=== PATIENT | female | born 1955 | race Caucasian/White ===

== ENCOUNTER → 2018-04-21 | Outpatient (CLI) | payer OTHER ==
[2018-04-21 18:47] LABS: BASOPHILS ABSOLUTE AUTO 0.03 K/mm3 (0.00-0.23); BASOPHILS PERCENT AUTO 0 % (0-2); EOSINOPHILS ABSOLUTE AUTO 0.01 K/mm3 (0.00-0.68); EOSINOPHILS PERCENT AUTO 0 % (0-6); Hematocrit 43.3 % (33.0-51.0); Hemoglobin 15.2 g/dL (11.5-16.0); IMMATURE GRAN ABSOLUTE AUTO 0.05 K/mm3 (0.00-0.10); IMMATURE GRAN PERCENT AUTO 1 % (0-1); LYMPHOCYTES PERCENT AUTO 21 % (21-46); MONOCYTES ABSOLUTE AUTO 0.47 K/mm3 (0.16-1.47); MONOCYTES PERCENT AUTO 6 % (4-13); Mean Corpuscular HGB 29.6 pg (26.0-34.0); Mean Corpuscular HGB Conc 35.1 g/dL (31.5-36.5); Mean Corpuscular Volume 84 fL (80-100); Mean Platelet Volume 10.4 fL (9.1-12.4); NEUTROPHILS ABSOLUTE AUTO 5.31 K/mm3 (1.96-9.15); NEUTROPHILS PERCENT AUTO 71 % (41-73); Platelet Count 265 K/mm3 (150-400); RDW Coefficient Variation 13.3 % (11.7-14.2); Red Blood Cell Count 5.13 M/mm3 (3.80-5.20); White Blood Cell Count 7.47 K/mm3 (4.00-11.30)
[2018-04-21 19:06] LABS: Albumin, Blood 4.1 g/dL (3.4-5.0); Albumin/Globulin Ratio 1.1 (0.8-1.8); Bilirubin, Total 0.6 mg/dL (0.1-1.0); Bun/Creatinine Ratio 13.5 (12.0-20.0); Calcium, Blood 9.7 mg/dL (8.5-10.1); Creatinine, Blood 0.96 mg/dL (0.40-1.00); Globulin, Blood 3.6 g/dL (2.2-4.0); Potassium, Blood 3.6 mmol/L (3.5-5.5); Thyroid Stimulating Hormone 4.11 uIU/mL (0.360-4.800); Total Protein, Blood 7.7 g/dL (6.4-8.2)
== END ==
LOC: LAB EV 18:40 → LAB SHORT 18:40
PROVIDERS: Physician Assistant Surgical
DX: R20.2 Paresthesia of skin (principal)
CPT/HCPCS: 80053; 84443; 85025

== ENCOUNTER → 2019-05-15 | Outpatient (CLI) | payer OTHER ==
[2019-05-15 18:27] LABS: Source, Urine Clean Catch
[2019-05-15 18:58] LABS: Bilirubin, Urine Neg (Neg); Blood, Urine 1+ (Neg); Glucose Qualitative, Urine Neg (Neg); Ketones, Urine Neg (Neg); Leukocyte Esterase, Urine Neg (Neg); Nitrite, Urine Neg (Neg); Protein, Urine Neg (Neg); Urobilinogen, Urine NORM (Normal)
[2019-05-15 19:07] LABS: Appearance, Urine Clear (Clear); Color, Urine Pale Yellow (P-Yellow)
[2019-05-15 19:08] LABS: Bacteria Not Seen /hpf; Red Blood Cells, Urine 0-2 /hpf (0-2); Squamous Epithelial Cells Not Seen /hpf (Few); White Blood Cells, Urine 0-2 /hpf (0-5)
== END ==
LOC: LAB SHORT 15:30 → LAB 15:30
PROVIDERS: Nurse Practitioner Family
DX: R31.29 Other microscopic hematuria (principal)
CPT/HCPCS: 81001

== ENCOUNTER → 2021-08-21 | Outpatient (CLI) | payer OTHER ==
[2021-08-21 19:06] LABS: Source, Urine Clean Catch
[2021-08-21 19:59] LABS: Bilirubin, Urine Neg (Neg); Blood, Urine 1+ (Neg); Glucose Qualitative, Urine Neg (Neg); Ketones, Urine 1+ (Neg); Leukocyte Esterase, Urine Neg (Neg); Nitrite, Urine Neg (Neg); Protein, Urine Neg (Neg); Specific Gravity, Urine 1.005 (1.003-1.022); Urobilinogen, Urine NORM (Normal); pH, Urine 6.5 (5.0-8.0)
[2021-08-21 20:40] LABS: Appearance, Urine Clear (Clear); Color, Urine Pale Yellow (P-Yellow)
[2021-08-21 20:43] LABS: Bacteria Not Seen /hpf; Red Blood Cells, Urine 0-2 /hpf (0-2); Squamous Epithelial Cells Not Seen /hpf (Few); White Blood Cells, Urine Not Seen /hpf (0-5)
== END ==
LOC: LAB SHORT 19:04 → LAB 19:04
PROVIDERS: Physician Assistant Medical
DX: R39.15 Urgency of urination (principal)
CPT/HCPCS: 81001

== ENCOUNTER 2021-10-18 15:20 | Emergency (ER) | payer OTHER ==
[~2021-10-18] VITALS: Ht 154.9 cm; Wt 69.0 kg
[2021-10-18 15:44] LABS: BASOPHILS ABSOLUTE AUTO 0.03 K/mm3 (0.00-0.23); BASOPHILS PERCENT AUTO 0 % (0-2); EOSINOPHILS ABSOLUTE AUTO 0.02 K/mm3 (0.00-0.68); EOSINOPHILS PERCENT AUTO 0 % (0-6); Hematocrit 46.9 % (33.0-51.0); IMMATURE GRAN ABSOLUTE AUTO 0.02 K/mm3 (0.00-0.10); IMMATURE GRAN PERCENT AUTO 0 % (0-1); LYMPHOCYTES ABSOLUTE AUTO 1.48 K/mm3 (0.84-5.20); LYMPHOCYTES PERCENT AUTO 21 % (21-46); MONOCYTES ABSOLUTE AUTO 0.42 K/mm3 (0.16-1.47); MONOCYTES PERCENT AUTO 6 % (4-13); Mean Corpuscular HGB 29.1 pg (26.0-34.0); Mean Corpuscular HGB Conc 34.1 g/dL (31.5-36.5); Mean Corpuscular Volume 85 fL (80-100); NEUTROPHILS ABSOLUTE AUTO 5.26 K/mm3 (1.96-9.15); NEUTROPHILS PERCENT AUTO 73 % (41-73); Platelet Count 294 K/mm3 (150-400); RDW Coefficient Variation 13.2 % (11.7-14.2); RDW Standard Deviation 40.8 fL (35.1-46.3); White Blood Cell Count 7.23 K/mm3 (4.00-11.30)
[2021-10-18 15:45] LABS: Source, Urine Clean Catch
[2021-10-18 15:51] LABS: Appearance, Urine Hazy (Clear); Bilirubin, Urine Neg (Neg); Blood, Urine 3+ (Neg); Color, Urine Yellow (P-Yellow); Glucose Qualitative, Urine Neg (Neg); Ketones, Urine 3+ (Neg); Leukocyte Esterase, Urine Neg (Neg); Nitrite, Urine Neg (Neg); Protein, Urine Neg (Neg); Urobilinogen, Urine NORM (Normal)
[2021-10-18 16:03] LABS: Bacteria Rare /hpf; Squamous Epithelial Cells Rare /hpf (Few); White Blood Cells, Urine Rare /hpf (0-5)
[2021-10-18 16:30] LABS: Alanine Aminotransfer (ALT/SGP 22 U/L (12-78); Albumin, Blood 4.1 g/dL (3.4-5.0); Albumin/Globulin Ratio 1.2 (0.8-1.8); Alk Phos 77 U/L (50-136); Anion Gap 6 mmol/L (6-16); Aspartate Aminotrans (AST/SGOT 25 U/L (12-37); Bilirubin, Total 0.8 mg/dL (0.1-1.0); Blood Urea Nitrogen 11 mg/dL (8-24); Bun/Creatinine Ratio 17.7 (12.0-20.0); CO2, Blood 22 mmol/L (21-32); Calcium, Blood 9.4 mg/dL (8.5-10.1); Chloride, Blood 108 mmol/L (98-108); Creatinine, Blood 0.62 mg/dL (0.40-1.00); Globulin, Blood 3.5 g/dL (2.2-4.0); Glomerular Filtration Rate >60 (60-); Glucose, Blood 107 mg/dL (70-99); Potassium, Blood 3.7 mmol/L (3.5-5.5); Sodium, Blood 136 mmol/L (136-145); Total Protein, Blood 7.6 g/dL (6.4-8.2)
== END 2021-10-18 16:59 | disposition home or self-care (01) ==
LOC: ER 15:20
PROVIDERS: Physician Assistant
DX: R53.1 Weakness (principal); F41.9 Anxiety disorder, unspecified
CPT/HCPCS: 36415; 80053; 81001; 85025; 93005; 93010; 99285-25

== ENCOUNTER → 2021-12-08 | Outpatient (CLI) | payer OTHER ==
[2021-12-08 16:08] LABS: Source, Urine Clean Catch
[2021-12-08 17:21] LABS: Bilirubin, Urine Neg (Neg); Blood, Urine 3+ (Neg); Glucose Qualitative, Urine Neg (Neg); Ketones, Urine 3+ (Neg); Leukocyte Esterase, Urine Neg (Neg); Nitrite, Urine Neg (Neg); Protein, Urine Neg (Neg); Urobilinogen, Urine NORM (Normal)
[2021-12-08 17:41] LABS: Appearance, Urine Hazy (Clear); Color, Urine Pale Yellow (P-Yellow)
[2021-12-08 17:43] LABS: Bacteria Few /hpf; Squamous Epithelial Cells Rare /hpf (Few); White Blood Cells, Urine 0-2 /hpf (0-5)
== END ==
LOC: LAB 14:30 → LAB SHORT 14:30
PROVIDERS: Physician Assistant Medical
DX: R53.82 Chronic fatigue, unspecified (principal)
CPT/HCPCS: 81001

== ENCOUNTER 2021-12-11 02:17 | Observation (INO) | payer OTHER ==
[~2021-12-11] VITALS: Ht 157.5 cm; Wt 64.9 kg
[2021-12-11 03:06] LABS: Acetaminophen, Random <2.0 ug/mL (10.0-30.0); Alanine Aminotransfer (ALT/SGP 20 U/L (12-78); Albumin/Globulin Ratio 1.2 (0.8-1.8); Alk Phos 62 U/L (50-136); Anion Gap 10 mmol/L (6-16); Aspartate Aminotrans (AST/SGOT 13 U/L (12-37); Bilirubin, Total 0.6 mg/dL (0.1-1.0); Blood Urea Nitrogen 12 mg/dL (8-24); Bun/Creatinine Ratio 18.7 (12.0-20.0); CO2, Blood 24 mmol/L (21-32); Calcium, Blood 8.9 mg/dL (8.5-10.1); Chloride, Blood 106 mmol/L (98-108); Creatinine, Blood 0.64 mg/dL (0.40-1.00); Ethanol (Alcohol), Blood, Med <3 mg/dL; Globulin, Blood 3.4 g/dL (2.2-4.0); Glomerular Filtration Rate >60 (60-); Glucose, Blood 146 mg/dL (70-99); Potassium, Blood 3.4 mmol/L (3.5-5.5); Salicylate <1.7 mg/dL (2.8-20.0); Sodium, Blood 140 mmol/L (136-145); Total Protein, Blood 7.4 g/dL (6.4-8.2)
[2021-12-11 03:45] LABS: BASOPHILS ABSOLUTE AUTO 0.04 K/mm3 (0.00-0.23); BASOPHILS PERCENT AUTO 0 % (0-2); EOSINOPHILS ABSOLUTE AUTO 0.01 K/mm3 (0.00-0.68); EOSINOPHILS PERCENT AUTO 0 % (0-6); Hematocrit 46.5 % (33.0-51.0); Hemoglobin 15.6 g/dL (11.5-16.0); IMMATURE GRAN ABSOLUTE AUTO 0.11 K/mm3 (0.00-0.10); IMMATURE GRAN PERCENT AUTO 1 % (0-1); LYMPHOCYTES ABSOLUTE AUTO 0.71 K/mm3 (0.84-5.20); LYMPHOCYTES PERCENT AUTO 5 % (21-46); MONOCYTES PERCENT AUTO 6 % (4-13); Mean Corpuscular HGB 29.2 pg (26.0-34.0); Mean Corpuscular HGB Conc 33.5 g/dL (31.5-36.5); Mean Corpuscular Volume 87 fL (80-100); Mean Platelet Volume 10.1 fL (9.1-12.4); NEUTROPHILS ABSOLUTE AUTO 13.96 K/mm3 (1.96-9.15); NEUTROPHILS PERCENT AUTO 89 % (41-73); Platelet Count 256 K/mm3 (150-400); RDW Coefficient Variation 13.4 % (11.7-14.2); RDW Standard Deviation 42.7 fL (35.1-46.3); Red Blood Cell Count 5.35 M/mm3 (3.80-5.20); White Blood Cell Count 15.73 K/mm3 (4.00-11.30)
[2021-12-11 06:09] LABS: U Amphetamine Screen Not Detected; U Barbituate Screen Not Detected; U Benzodiazapine Screen Not Detected; U Buprenorphine Screen Not Detected; U Cannabinoids Screen Not Detected; U Cocaine Screen Not Detected; U Methadone Screen Not Detected; U Methamphetamine Screen Not Detected; U Opiates Screen Not Detected; U Oxycodone Screen Not Detected; U Phencyclidine Screen Not Detected; U Propoxyphene Screen Not Detected
[2021-12-11 07:17] LABS: Magnesium, Blood 2.1 mg/dL (1.6-2.4); Potassium, Blood 3.6 mmol/L (3.5-5.5)
[2021-12-11 08:14] LABS: Magnesium, Blood 2.5 mg/dL (1.6-2.4); Potassium, Blood 4.6 mmol/L (3.5-5.5)
[2021-12-11 08:59] LABS: Influenza A, PCR NEGATIVE (NEGATIVE); Influenza B, PCR NEGATIVE (NEGATIVE); Resp Syncytial Virus, PCR NEGATIVE (NEGATIVE); SARS-Cov-2 (COVID-19) PCR, MMC NEGATIVE (NEGATIVE)
== END 2021-12-14 09:26 ==
LOC: ER 02:17 → EOR 02:18
PROVIDERS: Emergency Medicine; ADMIT Student in an Organized Health Care Education/Training Program
DX: F33.9 Major depressive disorder, recurrent, unspecified (principal); T43.592A Poisoning by other antipsychotics and neuroleptics, intentional self-harm, initial encounter; Z20.822 Contact with and (suspected) exposure to COVID-19
CPT/HCPCS: 0241U; 36415; 80053; 83735; 84132; 85025; 86592; 93005; 93010; 96374; A9270; G0378; G0480; J2405

== ENCOUNTER 2022-02-24 10:42 | Observation (INO) | payer MEDICARE, OTHER ==
[~2022-02-24] VITALS: Ht 167.6 cm; Wt 48.7 kg
[2022-02-24 13:53] LABS: Influenza A, PCR NEGATIVE (NEGATIVE); Influenza B, PCR NEGATIVE (NEGATIVE); Resp Syncytial Virus, PCR NEGATIVE (NEGATIVE); SARS-Cov-2 (COVID-19) PCR, MMC NEGATIVE (NEGATIVE)
[2022-02-24 14:39] LABS: BASOPHILS ABSOLUTE AUTO 0.02 K/mm3 (0.00-0.23); BASOPHILS PERCENT AUTO 0 % (0-2); EOSINOPHILS ABSOLUTE AUTO 0.01 K/mm3 (0.00-0.68); EOSINOPHILS PERCENT AUTO 0 % (0-6); Hemoglobin 19.5 g/dL (11.5-16.0); IMMATURE GRAN ABSOLUTE AUTO 0.04 K/mm3 (0.00-0.10); IMMATURE GRAN PERCENT AUTO 0 % (0-1); LYMPHOCYTES ABSOLUTE AUTO 0.64 K/mm3 (0.84-5.20); LYMPHOCYTES PERCENT AUTO 5 % (21-46); MONOCYTES ABSOLUTE AUTO 0.49 K/mm3 (0.16-1.47); MONOCYTES PERCENT AUTO 4 % (4-13); Mean Corpuscular HGB 29.4 pg (26.0-34.0); Mean Corpuscular Volume 86 fL (80-100); Mean Platelet Volume 10.9 fL (9.1-12.4); NEUTROPHILS PERCENT AUTO 91 % (41-73); Platelet Count 260 K/mm3 (150-400); RDW Coefficient Variation 14.2 % (11.7-14.2); RDW Standard Deviation 44.8 fL (35.1-46.3); Red Blood Cell Count 6.64 M/mm3 (3.80-5.20)
[2022-02-24 14:49] LABS: Hematocrit 57.4 % (33.0-51.0)
[2022-02-24 14:56] LABS: Albumin, Blood 3.5 g/dL (3.4-5.0); Bilirubin, Total 1.7 mg/dL (0.1-1.0); Bun/Creatinine Ratio 46.7 (12.0-20.0); Calcium, Blood 10.2 mg/dL (8.5-10.1); Creatinine, Blood 1.07 mg/dL (0.40-1.00); Globulin, Blood 3.6 g/dL (2.2-4.0); Magnesium, Blood 2.8 mg/dL (1.6-2.4); Potassium, Blood 3.5 mmol/L (3.5-5.5); Total Protein, Blood 7.1 g/dL (6.4-8.2)
--- NOTE | 2022-02-25 04:43 | NUR ---
SHIFT SUMMARY A/O TO SELF ONLY, FLAT WITHDRAWN AFFECT. SLOW TO RESPOND WHEN COMMUNICATING. BLADDER SCAN >750, OBTAINED ORDER TO STRAIGHT CATH WITH 1000 ML OUTPUT. DENIES PAIN OR SOB. VSS, NO ACUTE CHANGES AT THIS TIME. BED IN LOWEST POSITION WITH CALL LIGHT IN REACH. WILL CONTINUE TO MONITOR AND REPORT TO ONCOMING RN.
[2022-02-25 05:49] LABS: BASOPHILS ABSOLUTE AUTO 0.02 K/mm3 (0.00-0.23); BASOPHILS PERCENT AUTO 0 % (0-2); EOSINOPHILS ABSOLUTE AUTO 0.09 K/mm3 (0.00-0.68); EOSINOPHILS PERCENT AUTO 1 % (0-6); Hematocrit 44.9 % (33.0-51.0); Hemoglobin 15.1 g/dL (11.5-16.0); IMMATURE GRAN ABSOLUTE AUTO 0.03 K/mm3 (0.00-0.10); IMMATURE GRAN PERCENT AUTO 0 % (0-1); LYMPHOCYTES ABSOLUTE AUTO 0.87 K/mm3 (0.84-5.20); LYMPHOCYTES PERCENT AUTO 9 % (21-46); MONOCYTES ABSOLUTE AUTO 0.54 K/mm3 (0.16-1.47); MONOCYTES PERCENT AUTO 5 % (4-13); Mean Corpuscular HGB 29.5 pg (26.0-34.0); Mean Corpuscular HGB Conc 33.6 g/dL (31.5-36.5); Mean Corpuscular Volume 88 fL (80-100); Mean Platelet Volume 10.7 fL (9.1-12.4); NEUTROPHILS ABSOLUTE AUTO 8.36 K/mm3 (1.96-9.15); NEUTROPHILS PERCENT AUTO 84 % (41-73); Platelet Count 199 K/mm3 (150-400); RDW Coefficient Variation 14.4 % (11.7-14.2); RDW Standard Deviation 46.4 fL (35.1-46.3); Red Blood Cell Count 5.11 M/mm3 (3.80-5.20); White Blood Cell Count 9.91 K/mm3 (4.00-11.30)
[2022-02-25 05:57] LABS: Anion Gap 9 mmol/L (6-16); Blood Urea Nitrogen 36 mg/dL (8-24); Bun/Creatinine Ratio 44.2 (12.0-20.0); CO2, Blood 22 mmol/L (21-32); Calcium, Blood 8.7 mg/dL (8.5-10.1); Chloride, Blood 118 mmol/L (98-108); Creatinine, Blood 0.81 mg/dL (0.40-1.00); Glomerular Filtration Rate >60 (60-); Glucose, Blood 109 mg/dL (70-99); Potassium, Blood 3.2 mmol/L (3.5-5.5); Sodium, Blood 149 mmol/L (136-145)
--- NOTE | 2022-02-25 17:03 | NUR ---
AO TO SELF. WITHDRAWN WITH FLAT AFFECT. PT SLOW TO RESPOND, USUALLY RESPONDS WITH NO OR YES. PT DID NOT URINATE ON DAY SHIFT, RADAR SCIENTIST SCAN @1615 WAS 275ML. PT IS NOT EATING AND REFUSING MEDICATIONS. CURRENTLY NO ACUTE CHANGES. BED AND CHAIR ALARMS IN USE. CALL LIGHT IN REACH.
--- NOTE | 2022-02-25 17:11 | NUR ---
MEDICATION REQ REQUEST FROM [facility]; FAX IN THE CHART.
[2022-02-25] MEDS ORDERED: HYDHCL25 PO (17:15)
[2022-02-26 05:49] LABS: Albumin, Blood 3.3 g/dL (3.4-5.0); Anion Gap 10 mmol/L (6-16); Blood Urea Nitrogen 24 mg/dL (8-24); Bun/Creatinine Ratio 39.5 (12.0-20.0); CO2, Blood 22 mmol/L (21-32); Calcium, Blood 9.4 mg/dL (8.5-10.1); Chloride, Blood 119 mmol/L (98-108); Creatinine, Blood 0.61 mg/dL (0.40-1.00); Glomerular Filtration Rate 99 (60-); Glucose, Blood 96 mg/dL (70-99); Phosphorus, Blood 1.9 mg/dL (2.5-4.9); Potassium, Blood 3.6 mmol/L (3.5-5.5); Sodium, Blood 151 mmol/L (136-145)
--- NOTE | 2022-02-26 08:14 | NUR ---
SHIFT SUMMARY PT ALERT WITH VERY MINIMAL RESPOND, OFTEN REFUSED CARE. PT WOULD STATE "THIS IS TOO MUCH" FOR ANY INTERVENTION. ENC DRINK FLUIDS, ABLE TO GET PT TO SIP WATER BUT REFUSED T/O SHIFT. PT HAS NOT EATEN DURING THE DAY WELL PER DAY SHIFT NURSE. NOTIFY DR. CARSON, NS FLUIDS INFUSED AT 75MLS/HR BUT PT PULLED HER IV. ENC PT USE THE BSC, TO VOID. REFUSED AGIAN. BLADDER SCANNED WITH 600MLS, STRAIGHT CATH DONE WITH 800 URINE OUTPUT. BED ALARM IN PLACED FOR SAFETY. CALL LIGHT WITHIN REACH. REPORT GIVEN TO DAY NURSE.
[2022-02-26] MEDS ORDERED: ESCI10 PO (10:08)
[2022-02-26] MEDS ORDERED: TRAZ50 PO (10:09)
--- NOTE | 2022-02-26 18:21 | NUR ---
SHIFT SUMMARY: PATIENT ALERT AND ORIENTED TO SELF. AN IV WAS PLACED THIS MORNING FOR IV FLUID AND POTASSIUM. RIGHT AFTER THE POTASSIUM WAS FINISHED RUNNING, THE PATIENT PULLED HER IV OUT. WHEN ASKED, SHE COULD NOT TELL US WHY SHE DID IT. SHE REFUSED TO TAKE ANY MEDICATIONS OR EAT ANYTHING. WHEN ANOTHER IV WAS PLACED, SHE IMMEDIATELY PULLED THAT ONE OUT WELL. THROUGHOUT THE DAY, SHE BECAME MORE AND MORE AGITATED. DR. VILLEGAS ORDERED IM ATIVAN. AFTER A DOSE OF THE ATIVAN, THE PATIENT ATE ALL OF HER DINNER AND STARTED HAVING CONVERSATIONS WITH THE STAFF. SHE IS PLEASANTLY CONFUSED. BED AND CHAIR ALARM ON. CALL LIGHT IN REACH. WILL CONTINUE TO MONITOR.
--- NOTE | 2022-02-27 04:39 | NUR ---
JORDAN ATTEMPTS AT STARTING NEW IV, NEW IV WRAPPED WITH ARMBOARD. PT SLEPT ALL NIGHT, ABLE TO TRANSFER INDEPENDENTLY. CONTINUES TO BE CONFUSED.
[2022-02-27 06:02] LABS: Albumin, Blood 2.8 g/dL (3.4-5.0); Anion Gap 7 mmol/L (6-16); Blood Urea Nitrogen 19 mg/dL (8-24); Bun/Creatinine Ratio 30.1 (12.0-20.0); CO2, Blood 27 mmol/L (21-32); Calcium, Blood 8.2 mg/dL (8.5-10.1); Chloride, Blood 110 mmol/L (98-108); Creatinine, Blood 0.63 mg/dL (0.40-1.00); Glomerular Filtration Rate 98 (60-); Glucose, Blood 102 mg/dL (70-99); Phosphorus, Blood 2.5 mg/dL (2.5-4.9); Potassium, Blood 3.1 mmol/L (3.5-5.5); Sodium, Blood 144 mmol/L (136-145)
--- NOTE | 2022-02-27 18:32 | NUR ---
SHIFT SUMMARY PATIENT A&O TO SELF. PATIENT WOULD NOT TALK OR ANSWER ANY QUESTIONS. PATIENT UNCOOPERATIVE WITH CARE NOT WANTING TO GET UP TO RESTROOM OR OUT OF BED. ABLE TO PERSUADE PATIENT TO GET UP TO RESTROOM X2 T/O SHIFT AND GOT UP TO CHAIR. REFUSING MEDS, FOOD AND FLUIDS, ONLY TAKING A FEW SIPS THIS AM. RECEIVING IV FLUIDS. WILL CONTINUE TO MONITOR AND ENCOURAGE ORAL INTAKE.
--- NOTE | 2022-02-28 04:52 | NUR ---
PT UP IN CHAIR, REFUSES TO EAT OR DRINK. PT SHAKES HEAD YES OR NO WHEN ASKED A DIRECT QUESTION. PT TAKEN TO BATHROOM WITH NO SUCCESS. PT REFUSES ALL MEDICATION. PT ASKED ABOUT IV MEDICATION AND CONTINUES TO REFUSE. PT BLADDER SCANED AND SHOWED 650ML. PT WALKED TO BATHROOM AND WAS ABLE TO VOID. PT CONTINUES TO BE INCONTINENT OF STOOL.
[2022-02-28 05:31] LABS: Bun/Creatinine Ratio 23.4 (12.0-20.0); Calcium, Blood 8.2 mg/dL (8.5-10.1); Creatinine, Blood 0.56 mg/dL (0.40-1.00); Potassium, Blood 3.3 mmol/L (3.5-5.5)
--- NOTE | 2022-02-28 19:19 | NUR ---
SHIFT SUMMARY PATIENT A&O TO SELF. PATIENT RARELY RESPONDS TO QUESTIONS. STARES OFF IN THE DISTANCE SITTING IN HER CHAIR MOST OF SHIFT. REFUSING ALL CARE. NOTED PATIENT ATE HER APPLE SLICES ON HER LUNCH. REFUSING TO EAT OR DRINK ANYHTING ELSE. RECEIVING IV FLUIDS. REFUSING TO GET UP TO RESTROOM. PATIENT HAD ONE OCCURENCE OF INCONT. VSS. WILL CONTINUE TO MONITOR.
--- NOTE | 2022-03-01 03:18 | NUR ---
SHIFT SUMMARY PT CONTINUES TO BE NONVERBAL, SHE MAKES EYE CONTACT BUT WILL NOT ANSWER MY QUESTIONS, AND JUST STARES BLANKLY. PT TURNS FACE AWAY WHEN OFFERED APPLESAUCE, AND WILL NOT TAKE SCHDULED MEDICATIONS. NO ACUTE CHANGES IN ASSESSMENT OVERNIGHT. BED IN LOWEST POSITION, CALL LIGHT WITHIN REACH.
[2022-03-01 05:39] LABS: Bun/Creatinine Ratio 19.3 (12.0-20.0); Calcium, Blood 8.1 mg/dL (8.5-10.1); Creatinine, Blood 0.52 mg/dL (0.40-1.00)
--- NOTE | 2022-03-01 19:35 | NUR ---
SHIFT SUMMARY PATIENT A&O TO SELF. PATIENT SAT IN MIDDLE OF BED STARING. WILL OCCASIONALLY MAKE EYE CONTACT BUT WOULD NOT RESPOND. PATIENT REFUSING ALL CARE AND MEDICATION. PATIENT REFUSING TO EAT AND DRINK ALL DAY. RECEIVING IV FLUIDS WITH POTASSIUM. GAVE ATIVAN TOWARDS END OF SHIFT AFTER PATIENT BECAME ANXIOUS AFTER ATTENDS CHANGE. SHORTLY AFTER PATIENT BEGAN SPEAKING TO ONCOMING RN AND BEGAN EATING HER DINNER. REPORT GIVEN TO ONCOMING RN.
--- NOTE | 2022-03-02 05:19 | NUR ---
PT IS SELECTIVELY NON VERBAL WITH STAFF. WHEN PT TALKS ALERT TO SELF, CONFUSED, PARANOID, AND TRIES TO REFUSE ALL CARE. PT REFUSED ALL BEDTIME MEDICATIONS. PT VERY UNSTEADY ON FEET, BACK PEDALS AND LOSES BALANCE. TRIES TO GET OUT OF BED FREQUENTLY. PT ALSO PULLED IV LAST NIGHT.
[2022-03-02 05:53] LABS: Bun/Creatinine Ratio 12.8 (12.0-20.0); Calcium, Blood 7.6 mg/dL (8.5-10.1); Creatinine, Blood 0.47 mg/dL (0.40-1.00); Potassium, Blood 2.6 mmol/L (3.5-5.5)
--- NOTE | 2022-03-02 07:30 | NUR ---
ASSUMED CARE: PT RESETING QUIETLY, NO ACUTE NEEDS AT THIS TIME.
--- NOTE | 2022-03-02 07:57 | NUR ---
RN ENTERED ROOM TO START IV POTASSIUM PER ORDERS AND FOUND IV AND COBAN FOLDED ON TABLE. WHEN ASKED PT ABOUT IT PT STATED SHE DOES NOT NEED IT AND IT IS TEARING HER VEINS UP. TOLD PT THAT SHE NEEDS THE IV FOR MEDICINE AND FLUIDS SINCE SHE HASN'T BEEN EATING. PT STATES SHE HAS BEEN EATING AND "IT'LL BE FINE," THAT HER VEINS JUST NEED TO REST. TOLD HER A NEW IV NEEDED TO BE PLACED AND PT SAID "NO, IT'LL BE FINE." WILL REPORT TO DR. ORLANDO ALARM IN PLACE.
--- NOTE | 2022-03-02 08:15 | NUR ---
CALL TO DR NAYAK TO MAKE HIM AWARE OF PT PULLING IV AND REFUSING NEW ONE. ORDER FOR PO POTASSIUM IF ABLE TO GET PT TO TAKE IT. WILL ATTEMPT WITH BREAKFAST
--- NOTE | 2022-03-02 12:37 | NUR ---
PT GOT UP TO USE RESTROOM AND CONTINUES TO TELL STAFF "I'M FINE" WHENEVER WE TRY TO HELP HER. SHE THEN INSISTED ON SITTING ON EDGE OF BED. COMPLAINS THAT SHE WANTS TO TAKE A WALK. STAFF TOLD HER THAT'S FINE BUT WE HAVE TO WALK WITH HER. SHE TOLD US WE DIDN'T HAVE TO, THAT'S SHE FINE ON HER OWN. EXPLAINED TO HER THAT SHE'S A FALL RISK. OFFERED THE OPTION OF GETTING UP INTO A CHAIR OR BACK TO BED. PT REFUSED TO MAKE A DECISION. METAL CUT OFF SAW OPERATOR CAME INTO ROOM AND GOT HER BACK TO BED. BED ALARM ON AT THIS TIME.
--- NOTE | 2022-03-02 17:26 | NUR ---
PT TRANSFERRED TO ROOM 351. REPORT GIVEN TO MANA AREVALO. PT AMBULATED WITH WALKER TO NEW ROOM BUT ARGUED WITH STAFF WHEN THEY ATTEMPTED TO REDIRECT PT AND INSTRUCT HER TO USE WALKER OR GAIT BELT. WHEN SHE GOT TO NEW ROOM SHE DID NOT WANT TO GO IN AND REQUIRED REDIRECTING AGAIN.
--- NOTE | 2022-03-02 19:15 | NUR ---
REPORT FROM DAY SHIFT RN, PT PULLED OUT HER IV - AND WAS MADE AWARE OF THIS, PT'S POTASSIUM IS 2.6. REPORT FROM RN, IS PT HAS BEEN REFUSING ALL MEDICATIONS, PO FLUIDS/FOOD.
--- NOTE | 2022-03-02 19:45 | NUR ---
PT SITTING IN CHAIR IN THE [place]. GAIT BELT IN PLACE. OFFERRED PT FOOD/FLUIDS - SHE SHAKES HER HEAD NO TO BEING HUNGRY OR WANTING FOOD/FLUIDS. PT WAS ABLE TO FOLLOW INSTRUCTIONS WITH DEEP BREATHS - LS ARE CLEAR THROUGHOUT. PT IS CURRENTLY NON-VERBAL, WITH ARMS CROSSED SITTING IN THE CHAIR. PT DIDN'T ANSWER IF SHE WAS IN PAIN, PT DOESN'T APPEAR TO BE IN ANY DISTRESS, RESTING AT TIMES IN CHAIR WITH EYES CLOSED. CM NOTE REPORTS POTENTIAL FOR ETHICS CONSULT TOMORROW. CM INVOLVED ON CASE - SEE NOTES. LAST PO INTAKE WAS REPORTED IN CHART ON 02/28, LAST IV INTAKE WAS REPORTED ON 03/01. WILL CONTINUE TO MONITOR THROUGHOUT THE NIGHT AND UNTIL AM SHIFT CHANGE.
--- NOTE | 2022-03-02 21:11 | NUR ---
PT AMBULATORY TO HER ROOM, FOR AN ATTENDS CHANGE. PT REQUIRED PROMPTING, SHE STATED SHE WAS "FINE, ALREADY CHANGED." PT DID ALLOW AN ATTENDS CHANGE. PT REFUSED HER MEDICATIONS, SAYS "NO." PT REFUSING PO FLUIDS/FOOD - SAYS "NO."
--- NOTE | 2022-03-02 21:27 | NUR ---
PT PULLED HER GAIT BELT OFF, REFUSED TO HAVE IT PLACED BACK ON. PT IS GETTING HERSELF IN BED, PT TELLS ME "BYE BYE" AND IS TELLING ME WITH HER HANDS TO LEAVE HER ROOM. WATCHING PT FROM THE HALLWAY, FOR SAFETY REASONS. BED ALARM PLACED ON FOR SAFETY.
--- NOTE | 2022-03-02 21:53 | NUR ---
I SPOKE TO DR. TONY - UPDATED DR. TONY THAT PT'S K+ 2.6, PER REPORT FROM DAY SHIFT, PT PULLED OUT HER IV TODAY. ALSO RELAYED PT HASN'T HAD ANY PO INTAKE SINCE 02/28, CM INVOLVED WITH ASSISTING WITH GUARDIANSHIP, AND POTENTIAL FOR ETHICS CONSULT TOMORROW, AND RELAYED PT HASN'T BEEN COMPLIANT WITH MEDICATIONS ALSO RELAYED TO DR. TONY, PREVIOUS RN REPORTED SHE HAD NOTIFIED DAY SHIFT THAT PT HAD PULLED OUT IV TODAY (HOWEVER NOTHING DOCUMENTED ON THIS.) SPOKE TO SEFERINO WILBURN - AND UPDATED HER ON THE ABOVE INFORMATION, ALSO THAT PT HAS BEEN NON-COMPLIANT WITH MEDICATIONS FOR 3 MONTHS, WAS FOUND DOWN AT HOME COVERED IN FECES AND URINE WITH A TEMPERATURE IN THE HOME AT [address] CHIANG NOTE ON CHART, ABOUT GUARDIANSHIP IS NEEDED. PT CONTINUES TO REFUSE PO FLUIDS/FOOD - OFFERRED X3 TONIGHT - PT SHAKES HER HEAD NO EACH TIME TO THE OFFER. PT IS CURRENTLY IN BED, BED ALARM ON.
--- NOTE | 2022-03-02 22:07 | NUR ---
REVIEWED 5/16 AM NOTES FROM MANA GAUTHIER - PT PULLED HER IV OUT AT APPX 0757 TODAY - NOTE IN CHART SHE SPOKE TO THE TODAY REGARDING IV PULLED OUT BY PT.
--- NOTE | 2022-03-02 22:21 | NUR ---
PLACED ORANGE JUICE ON PT'S OVERBED TABLE. EARLIER, I PLACED PT'S WATER CLOSE TO HER ON HER OVERBED TABLE, AND SHE PICKED IT UP AND PLACED IT BACK WHERE IT WAS ON THE OVERBED TABLE, WHICH WAS FURTHER AWAY FROM HER. PT IS CURRENTLY SLEEPING IN BED, RESPIRATIONS EVEN AND UNLABORED. BED ALARM ON FOR PT'S SAFETY.
--- NOTE | 2022-03-03 03:34 | NUR ---
ON 03/01 AT 1935 - NN REPORTS PT BEGAN EATING HER DINNER, HOWEVER I&O'S WEREN'T CHARTED - WILL REPORT THIS OFF TO ONCOMING SHIFT.
--- NOTE | 2022-03-03 03:55 | NUR ---
PT CONTINUES TO REFUSE PO FLUIDS OR FOOD OFFERRED. PT HAS BEEN SLEEPING FOR THE LAST SEVERAL HOURS - BED ALARM ON FOR SAFETY. CALL LIGHT WITHIN REACH. BED IN LOW POSITION. FLUIDS AT BEDSIDE.
--- NOTE | 2022-03-03 04:36 | NUR ---
SHIFT SUMMARY - NO ACUTE CHANGES THIS SHIFT. PT CONTINUES TO REFUSE PO FLUIDS/FOOD, & EVENING MEDICATIONS. PT DID ALLOW 2 ATTENDS CHANGES DURING THE NIGHT. PT HAS BEEN SLEEPING FOR APPX 6 HOURS TONIGHT, RESPIRATIONS EVEN AND UNLABORED. PT WAS SITTING IN A CHAIR IN THE [place] AT THE BEGINNING OF THE SHIFT, MOSTLY STARING OFF INTO SPACE. PT WAS ABLE TO FOLLOW INSTRUCTIONS WITH TAKING DEEP BREATHS FOR LISTENING TO LUNG SOUNDS, AND DID OCCASIONALLY RESPOND TO YES/NO QUESTIONS BY SHAKING HER HEAD, BUT OTHERWISE WAS NOT RESPONDING TO VERBAL QUESTIONS ASKED. PT WAS ABLE TO AMBULATE TO HER ROOM FOR HER FIRST ATTENDS CHANGE WITH A SBA. PT WAS ABLE TO RESPOND WITH LIMITED VERBAL COMMUNICATION - SEE PREVIOUS NOTES. SEE PREVIOUS NOTES TONIGHT ON PT'S PO INTAKE, AND CONVERSATION WITH DR. TONY. WILL CONTINUE TO MONITOR UNTIL AM SHIFT CHANGE.
--- NOTE | 2022-03-03 05:01 | NUR ---
PT IS SITTING UP IN BED, AND REMOVED HER GOWN FROM HER ARMS. PT OFFERRED ORANGE JUICE - PT STATES "NO, I DON'T WANT THAT" AND PUSHED HER OVERBED TRAY AWAY. PT DID ALLOW LAB TO DRAW HER BLOOD THIS AM. BED ALARM IS ON FOR SAFETY. CALL LIGHT WITHIN REACH.
--- NOTE | 2022-03-03 06:02 | NUR ---
PT LAYING IN BED, IN HIGH SEMI FOWLERS POSITION, SLEEPING - RESPIRATIONS EVEN AND UNLABORED.
[2022-03-03 06:12] LABS: Albumin, Blood 2.6 g/dL (3.4-5.0); Bilirubin, Total 1.1 mg/dL (0.1-1.0); Bun/Creatinine Ratio 10.8 (12.0-20.0); Calcium, Blood 8.3 mg/dL (8.5-10.1); Creatinine, Blood 0.55 mg/dL (0.40-1.00); Globulin, Blood 2.7 g/dL (2.2-4.0); Magnesium, Blood 1.8 mg/dL (1.6-2.4); Potassium, Blood 2.5 mmol/L (3.5-5.5); Total Protein, Blood 5.3 g/dL (6.4-8.2)
--- NOTE | 2022-03-03 14:44 | NUR ---
ALERT, ORIENTATION UNKNOWN. PATIENT CAN AMBULATE, REQUIRES SBA WITH ONE PERSON D/T UNSTADY SHAWN; GAIT BELT ON. PATIENT CONTINUES TO REFUSE PO FLUIDS, FOOD, AND MEDICATIONS. PATIENT IS SELECTIVELY VERBAL, MOSTLY SAYS, "NO". SITS CALMLY IN THE HALLWAY CHAIR AND STARES OFF IN THE DISTANCE, RARELY MAKES EYE CONTACT. PATIENT HAD AN INCONTINENT EPISODE WHILE STANDING IN THE HALLWAY. STAFF WAS ABLE TO ASSIST HER TO THE SHOWER TO BE CLEANED, CLOTHING AND ATTENDS CHANGED. PATIENT WAS VERY RESISTIVE TO CARE, HOWEVER NOT COMBATIVE. NO SIGNS OF PAIN, ANXIETY, OR AGGRESSION. CURRENTLY NO ADVERSE BEHAVIORS AND NO ACUE CHANGES. BED ALARM USED WHEN IN BED; BED IN LOWEST POSITION. CALL LIGHT IN REACH, PATIENT DOESN'T USE IT.
--- NOTE | 2022-03-04 15:26 | NUR ---
PATIENT ALERT, ORIENTATION UNKNOWN. PT CAN AMBULATE, GAIT MORE STEADY TODAY; GAIT BELT ON. PT USUALLY SITS IN HALLWAY CHAIR, CURRENTLY RESTING IN HER BED. THIS MORNING PT MADE EYE CONTACT, TALKED A LITTLE, AND ASKED QUESTIONS; PT IS CONFUSED. PT ATE A FEW APPLE SLICES TODAY, BUT STILL NOT DRINKING FLUIDS. PT IS STILL RESISTIVE TO CARE, BUT NOT COMBATIVE. NO SIGNS OF PAIN, ANXIETY, OR AGGRESSION. CURRENTLY NO ADVERSE BEHAVIORS AND NO ACUTE CHANGES. CALL LIGHT IN REACH, PATIENT DOESN'T USE IT.
--- NOTE | 2022-03-04 18:59 | NUR ---
Review of pt with [facility] ethecisit and career specialist. pt walking in room non verbal at my visit. Thei is my first encounter with pt. Suggest Neuro checks and puplil checks. Will ask staff mariettay knows her to monitor for changes in gain or muscle tightening. Suggest speech assess cranial nerve function and swallow. pt may have MS flare or aging and and may be progressing towards dementia. If her swallowing and cognition is declining she may be better served by hospice for the medications they can offer for suffering and neuro symptoms. will follow up with staff. Updated clincial coordinatior.
--- NOTE | 2022-03-05 03:50 | NUR ---
SHIFT SUMMARY NO ACUTE CHANGES TO PT CONDITION. PT SAT IN HALLWAY THIS EVENING AND PUT HERSELF TO BED. SLEPT MOST OF THE NIGHT. DAY SHIFT STS PT WAS COMMUNICATING WITH HER MORE YESTERDAY. PT DID NOT COMMUNICATE WITH ME TONIGHT. WILL CONTINUE TO MONITOR.
--- NOTE | 2022-03-05 15:56 | NUR ---
PATIENT ALERT, ORIENTATION UNKNOWN. PT CAN AMBULATE. PT CONTINUES TO REFUSE PO FLUIDS, FOOD, AND MEDICATIONS. PT SITTING IN HER ROOM FOR MOST OF THE SHIFT. PT PUSHED HER WATER OFF THE BEDSIDE TABLE THIS MORNING, WHEN STAFF INSISTED SHE KEEP IT IN HER ROOM; KEPT REMOVING IT AND RETURNING TO HER ROOM. PT ATE ABOUT 3 APPLE SLICES TODAY, NOTHING ELSE; NOT DRINKING ANY FLUIDS. STILL RESISTING CARE. NO ACUTE CHANGES. CALL LIGHT IN REACH, PT DOESN'T USE IT.
--- NOTE | 2022-03-05 18:59 | NUR ---
pt less interactive ambulating in room.
--- NOTE | 2022-03-06 00:20 | NUR ---
CHAVO BATES CONTACTED FOR CLARIFICATION - PATIENT IS DISORIENTED/CONFUSED, NONVERBAL OCCASIONALLY SPEAKING/RESPONDING. PATIENT IS FULL CODE WITH NO COMFORT CARE ORDERS IN PLACE. PATIENT HAS CONTINUED TO REFUSE ALL FOOD AND WATER, ALL MEDICATIONS AND ANY CARE OR INTERVENTIONS FROM NURSING STAFF. RECENT LABS SHOW LOW POTASSIUM AND DYHYDRATION, NO IV IS IN PLACE AND NO IV FLUIDS BEING ADMINISTERED. DUE TO PATIENTS MENTAL STATE AND INABILITY TO MAKE INFORMED DECISIONS SHOULD WE BE PROVIDING MEDICAL CARE TO GIVE MEDICATIONS OR IV FLUIDS? CHAVO BATES REVIEWED PATIENTS CHART- AGREED APPROPRIATE TO ADMINISTER IV FLUIDS ALTHOUGH PATIENT IS DECLINING DUE TO RECORDED DIAGNOSIS OF DEMENTIA AND ALTERED MENTAL STATUS. THIS NURSE INFORMED MD THAT PATIENT CONTINUES TO DECLINE ANY MEDICAL STAFF INTERVENTIONS, MD PLACED ORDER FOR NON VIOLENT RESTRAINT IN ORDER TO PLACE IV AND ADMINISTER IV FLUIDS.
--- NOTE | 2022-03-06 04:38 | NUR ---
SHIFT SUMMARY/NURSE NOTE: (PLEASE REVIEW NURSING NOTE FOR ADDITIONAL INFORMATION) CHAVO BATES [facility] AND POTASSIUM REPLACEMENT. INFORMED THAT PATIENT CONTINUES TO DECLINE ALL MEDICAL STAFF ASSISTANCE/INTERVENTIONS, CONTINUING TO DECLINE ALL FOOD, WATER AND MEDICATIONS. BASED ON PATIENTS CONTINUED CONDITION OF ALTERED MENTAL STATUS, CONFUSION, DIAGNOSIS OF DEMENTIA AND CONTINUED DECLINATION OF FOOD, WATER AND MEDICATIONS; CHAVO BATES APPROVED APPROPRIATE TO OBTAIN IV ACCESS AND ADMINISTER IV FLUIDS, PLAN TO RECHECK AM LABS. DUE TO CONTINUED REFUSAL OF MEDICAL STAFF INTERVENTIONS ORDERED NON VIOLENT RESTRAINTS. -NON VIOLENT RESTRAINTS APPLIED 0111 AT THIS TIME PATIENT WAS VERY WITHDRAWN AND CONFUSED, DECLINING MEDICAL CARE AND CONTINUED TO BE NON VERBAL WITH OCCASIONALLY VERBALIZING "NO" AND "I DON'T WANT THAT". PATIENT WAS UNABLE TO ANSWER ANY ORIENTATION QUESTIONS AT THIS TIME. PATIENT APPEARED VERY RESTLESS PULLING AT RESTRAINTS AND ATTEMPTING TO REMOVE IV LINES. -IV ATIVAN ADMINISTERED AFTER IV ACCESS OBTAINED WHILE WRIST RESTRAINTS REMAINED IN PLACE. PATIENT HAD POSITIVE RESULTS POST ATIVAN ADMINISTRATION. PATIENT ABLE TO REST, NO LONGER PULLING AT RESTRAINTS. PATIENT PERSONALLY USED CALL RIGGINS AND CALLED NURSING STAFF APPROPRIATELY REQUESTING FOOD AND WATER. PATIENT WAS ABLE TO CONVERSE IN COMPLETE SENTENCES, PT AT THIS TIME AWARE SHE IS IN THE HOSPITAL. PATIENT STATES "IM SORRY I WASNT ALLOWING YOU TO HELP ME EARLIER, I WAS VERY SCARED AND DIDNT KNOW WHAT WAS GOING ON". PATIENT ABLE TO VERBALIZE UNDERSTANDING OF IV FLUID ADMINISTRATION AND AGREED TO TAKE IV FLUIDS AND NOT REMOVE IV ACCESS. 0315- WRIST RESTRAINTS REMOVED - PATIENT CONSUMED A TOTAL OF 800ML OF WATER, 1 BOTTLE OF ENSURE, 2 JELLO CUPS, 1 YOGURT, 1 PUDDING AND 2 PACKAGES OF CHEESE. PATIENT ABLE TO FEED SELF. NO ATTEMPTS TO GET OUT OF BED WITHOUT ASSISTANCE, NO ATTEMPTS TO REMOVE IV. CAMERA MONITORING CONTINUED.
[2022-03-06 04:59] LABS: Bun/Creatinine Ratio 37.8 (12.0-20.0); Calcium, Blood 8.3 mg/dL (8.5-10.1); Creatinine, Blood 0.56 mg/dL (0.40-1.00); Magnesium, Blood 1.8 mg/dL (1.6-2.4); Potassium, Blood 2.6 mmol/L (3.5-5.5)
--- NOTE | 2022-03-06 17:17 | NUR ---
DAYSHIFT SUMMARY Pt cooperative with cares this shift, good fluid intake this shift, she ate each meal today. Rested most of the day in bed. Encouarged pt to elevate LE, bilat LE +2 pitting edema. Potassium 2.6, ordered PO & IV Potassium. Encouraged pt to take medications, pt stated she would think about it. Refused to take all medications this shift. OOB walked around the unit. Vitals stable.
--- NOTE | 2022-03-07 03:34 | NUR ---
0040 CHAVO BATES CONTACTED FOR FURTHER CLARIFICATION IF PATIENTS LOW POTASSIUM SHOULD BE TREATED. INFORMED PATIENT REMAINS CONFUSED- ONLY ORIENTED TO SELF. NON VERBAL ONLY OCCASIONALLY RESPONDING AT THIS TIME, UNABLE TO CARE FOR PERSONAL ADLS. UNINTERESTED IN FOOD AND WATER TONIGHT AND DECLINING ALL MEDICATIONS. CONFIRMED APPROPRIATE TO MEDICALLY TREAT PATIENT ALTHOUGH SHE CONTINUES TO DECLINE CARE, DUE TO PATIENT CONTINUED CONFUSION, AND OFFICIAL DIAGNOSIS OF DEMENTIA WE ARE TO TREAT PT MEDICALLY. MD REPORTED THIS WILL PASSED ON TO DAY SHIFT COVERING PHYSICIAN. -CHAVO BATES PLACED ORDERS FOR ATIVAN, AND POTASSIUM REPLACEMENT- APPROVED TO PLACE IV IF PATIENT IS NON COMPLIANT WITH PO MEDICATIONS, TO THEN CONTINUE WITH IV MEDICATION ADMINISTRATION. -0254 GAVE TELEPHONE ORDER FOR NON VIOLENT WRIST RESTRAINT- RIGHT WRIST TO DIVERT PATIENT FROM REMOVING IV. - POST ADMINISTRATION OF IV ATIVAN 1MG IV- PATIENT QUICKLY BECAME MORE INTERACTIVE WITH STAFF, NOW CONVERSING AND MAKING NEEDS KNOWN, COMPLIANT WITH CARE AND HAD A SUDDEN INTEREST TO EAT AND DRINK. MD UPDATED OF PATIENTS POSITIVE RESPONSE TO ATIVAN, BASED ON NURSING ASSESSMENT PATIENT MAY HAVE CONTINUED COMPLIANCE WITH MEDICAL INTERVENTIONS IF ANXIETY IS TREATED REGULARLY/SCHEDULED.
--- NOTE | 2022-03-07 05:43 | NUR ---
SHIFT SUMMARY: PLEASE REVIEW NURSE NOTE FOR MD COMMUNICATION AND INTERVENTIONS. RECAP OF SHIFT: CHAVO BATES GAVE TELEPHONE ORDERS TO REPLACE POTASSIUM. PATIENT CONTINUED TO DECLINE ANYTHING PO AT THAT TIME. IV PLACED LEFT FOREARM, IV ATIVAN ADMINISTERED, IV POTASSIUM REPLACEMENT INITIATED AND RIGHT ARM NON VIOLENT WRIST RESTRAINT APPLIED TO DIVERT PT SELF REMOVAL OF LINE. - PRIOR TO IV ATIVAN ADMINISTRATION PATIENTS DEMEANOR WAS FLAT, SHE WAS NONVERBAL, NON COOPERATIVE, DECLINING ALL FOOD/WATER AND MEDICATIONS. POST ADMINISTRATION OF IV ATIVAN PATIENTS DEMEANOR QUICKLY CHANGED, PATIENT BEGAN EATING AND DRINKING. COMMUNICATING AND MAKING NEEDS KNOWN, REQUESTING ADDITIONAL FOOD & WATER, VERBALIZING SHE WOULD BE COMPLIANT WITH IV POTASSIUM REPLACEMENT - RESTRAINT DISCONTINUED WITHIN 2 HOURS- CAMERA MONITORING CONTINUED TO MONITOR IV AND PATIENT SAFETY.
--- NOTE | 2022-03-07 16:38 | NUR ---
DAYSHIFT SUMMARY This am IV Potassium infusing, pt continued to pick at IV dressing. assessed pt at bedside, provided education on Hypokalemia & potassium replacement. Pt requesting to have IV removed. MD asked if pt would take Potassium elixer in juice, pt agreed. stated that pt does have altered mentation, disoriented x2, but has the right to refuse treatment & IV interventions. Pt has adequte fluid intake & eating each meal plus snacks. Pt removed IV, stated does not want to continue to insert IVs, since the pt is removing the IVs. No IV access ordered placed. 2/3 Potassium doses infused. Pt incontinent of stool today. Cooperative with cares, OOB walking halls independently. Ativan PO given for anxiety, RN showed pt the pill & explained what the medcation was for. Pt swallowed the pill whole with water. Vitals stable, no other concerns at this time. Awaiting guardianship.
--- NOTE | 2022-03-07 19:49 | NUR ---
NURSE NOTE: REMOTE MONITORING CALLED TO INFORM PATIENT DOWN ON FLOOR, WHEN STAFF ARRIVED TO ROOM PATIENT WAS IN THE BATHROOM ON HER KNEES. PATIENT HAS BEEN INDEPENDENT IN ROOM WITH NO NOTED WEAKNESS UNTIL NOW. PATIENT REQUIRED TWO PERSON ASSIST TO GET BACK IN BED. NO INJURIES FOUND, PATIENT REPORTS NO PAIN BUT STATES "I DONT FEEL WELL AND MY LEGS ARE WEAK. HERNANDO BATES INFORMED OF PATIENT FALL, UPDATED BP STABLE AT THIS TIME AND HEART RATE SLIGHTLY ELEVATED AT 108 BPM. MD CONFIRMED NO INTERVENTIONS AT THIS TIME, WILL ATTEMPT FOR LAB DRAW IN THE MORNING TO REVIEW ELECTROLYTES. WILL CONTINUE TO MONITOR AND HAVE NURSING STANDBY/SUPERVISION WITH AMBULATION. PATIENT IN BED RESTING COMFORTABLY, BED ALARM ACTIVATED.
--- NOTE | 2022-03-08 03:51 | NUR ---
SHIFT SUMMARY: PATIENT REMAINS CONFUSED, INABILITY TO PERFORM ADL'S, DELAYED RESPONSES, WITHDRAWN. 192- CAMERA MONITORING CALLED TO REPORT PATIENT WAS ON THE FLOOR IN THE BATHROOM. PATIENT WAS FOUND ON KNEES IN BATHROOM. PATIENT REPORTED "I WENT TO MY KNEES","MY LEGS ARENT WORKING RIGHT" NO INJURIES NOTED, 2 PERSON ASSIST TO GET PATIENT BACK TO BED. BED ALARM ACTIVATED AND STANDBY NURSING ASSIST WHEN OUT OF BED. PLEASE REVIEW NURSES NOTE FOR FURTHER INFORMATION ON THE INCIDENT. PATIENT DECLINED TO TAKE ORAL ATIVAN TONIGHT, ATTEMPTED TO EDUCATE AND GIVE VERBAL CUES WITH NO SUCCESS IN PATIENT TAKING PO MEDICATIONS. -PATIENT HAS BEEN CONTINENT, THROUGHOUT THE NIGHT WITH GOOD URINARY OUTPUT. - CAMERA MONITORING REMAINS IN PLACE, CALL RIGGINS IN REACH, BELONGINGS IN REACH, BED IN LOW POSITION, BED ALARM ACTIVATED.
[2022-03-08 04:31] LABS: Bun/Creatinine Ratio 39.1 (12.0-20.0); Calcium, Blood 7.8 mg/dL (8.5-10.1); Creatinine, Blood 0.51 mg/dL (0.40-1.00); Potassium, Blood 4.2 mmol/L (3.5-5.5)
--- NOTE | 2022-03-08 17:26 | NUR ---
PT IS ALERT ORIENTED TO SELF AND SURROUNDINGS, THE PT HAS BEEN UP IND IN HER ROOM TODAY. PT APPEARS TO BE BREATHING EASILY ON RA. PT IS VERY ANXIOUS AND PARANOID AT TIMES. ORAL ATIVAN GIVEN THIS AM. CALL LIGHT IN REACH WILL CONTINUE TO MONITOR AND ASSESS FOR CHANGES
--- NOTE | 2022-03-09 05:13 | NUR ---
SHIFT SUMMARY PT HAD A MOSTLY UNEVENTFUL NIGHT. PLEASANT. ATE A GOOD SNACK EARLY IN THE SHIFT. MOSTLY JUST WATCHING TV AND RESTING IN HER BED. APPEARED TO BECOME MORE ANXIOUS LATER IN THE EVENING. SPEECH BECAME MORE SELECTIVE AND PT WOULD MOSTLY JUST STARE. APPEARED FEARFUL. REFUSED MEDICATIONS. ATTEMPTED TO GET PT TO TAKE AN ATIVAN IN PUDDING AND PT WOULD NOT TAKE A BITE. EVENTUALLY PT FELL ASLEEP LATE IN THE SHIFT. PT DENIED ANY PAIN. UP INDEPENDENT IN HER ROOM. AWAITING GUARDIANSHIP AND PLACEMENT.
--- NOTE | 2022-03-09 07:34 | NUR ---
Ethics Update: the emergency guardianship assessment is well underway. Until the principal has a legally appointed fuduciary, medical care cannot be forcibly imposed on her, as this would constitute a civil privilege violation. The only exception to this standard would be the implementation of life preserving or emergency interventions in the event of cardiac decompensation. This can also be suspended if two providers formally attest to the facts that the prinicipal is in a terminal condition, incapable of making or understanding clinical decisions, and that such treatment would be disproportionate or medically non-beneficial.
--- NOTE | 2022-03-09 17:14 | NUR ---
SHIFT SUMMARY PATIENT A&O TO SELF. PATIENT DOES NOT RESPOND TO QUESTIONS. WILL STARE WITH CLENCHED FISTS, REFUSING TO TAKE ANY MEDICATIONS EVEN K+ MIXED IN GATORADE. PATIENT OCCASIONALLY MOVED ABOUT INDEPENDENTLY IN ROOM. POOR APPETITE ONLY EATING SOME OF HER BREAKFAST THIS AM. WILL CONTINUE TO MONITOR AND OFFER AND ENCOURAGE ORAL INTAKE.
--- NOTE | 2022-03-10 05:45 | NUR ---
SHIFT SUMMARY PATIENT ALERT AND ORIENTED TO SELF. HAD NO COMPLAINTS OF PAIN OR SHORTNESS OF BREATH. IS RESISTANT TO CARE. NO ACUTE ISSUES NOTED OVERNIGHT. CALL LIGHT WITHIN REACH. REPORT GIVEN TO ONCOMING RN.
--- NOTE | 2022-03-10 16:50 | NUR ---
SHIFT SUMMARY- PT FLAT AFFECT THROUGHOUT SHIFT. IN AM PT LEARY OF COMMUNICATION WHEN ADDRESSED FOR NEEDS. PT COMMUNICATION IMPROVED TO HEAD NODDING WHEN ASKED QUESTIONS. PT IS CURRENTLY NONVERBAL. VSS. ALERT, DOES NOT DISCUSS SURROUNDINGS FOR ORIENTATION ASSESSMENT. PT INDEPENDANT IN ROOM. PT IN BED WITH CALL LIGHT IN REACH. NO C/O OF PAIN DURIGN SHIFT.
--- NOTE | 2022-03-11 04:32 | NUR ---
SHIFT SUMMARY NO ACUTE CHANGES OVERNIGHT. PT REMAIN NONVERBAL. SHE HAS A FLAT AFFECT. SHE WOULD NOD INTERMITTENTLY WHEN ASKED WITH A QUESTION. IND IN ROOM. ALERT. PT HAS NO COMPLAINS T/O THE SHIFT. SLEPT GOOD OVERNIGHT. CALL LIGHT WITHIN REACH. BED IN LOW POSITION. WILL PROVIDE REPORT TO ONCOMING NURSE.
--- NOTE | 2022-03-11 18:41 | NUR ---
SHIFT SUMMARY- PT ANXIOUS THROUGHOUT SHIFT. PT APPETITE POOR. PT VOIDING IN ATTENDS. PT REFUSED MEDS, FEARFUL. PT INDEPENDANT IN ROOM. PT WITH CALL LIGHT IN REACH.
--- NOTE | 2022-03-12 01:29 | NUR ---
SUMMARY PT APPEARS TO BE MORE PARANOID THIS MORNING. PACING AND WANDERING BACK AND FORTH IN THE HALLWAY AND ROOM. SHE HAS BEEN PLEASANT AND QUIET. NONVERBAL. INTERMITTENTLY NOD WHEN ANSWERS. FLAT AFFECT AND WITHDRAWN. PT HAD ENSURE IN HER DINNER TRAY BUT DIDN'T EAT THE REST OF HER FOOD. ATTEMPT TO GIVE ATIVAN BUT PT REFUSE. INDEPENDENT IN ROOM. NORMALLY USE THE BATHROOM TO VOID BUT SHE HAS BEEN VOIDING ON HER ATTENDS. ATTENDS IN PLACE FOR INCONTINENCE. CALL LIGHT WITHIN REACH. WILL CONTINUE TO MONITOR AND WILL PROVIDE REPORT TO ONCOMING NURSE.
--- NOTE | 2022-03-12 04:28 | NUR ---
REPORT RECIEVED FROM ARELIS ADAIR. PT PACING IN ROOM AT 0300, UNRESPONSIVE TO STAFF. PT REFUSING TREATMENT AT THIS TIME.
--- NOTE | 2022-03-12 16:24 | NUR ---
DAY SHIFT SUMMARY 67 YR OLD FEMALE PT WITH LOKI. PT ON RA WITH NO IV, WAITING FOR GUARDIANSHIP AND PLACEMENT. INDEPENDENT IN ROOM. PT HAS SLEPT MOST OF SHIFT. FREQUENT ROUNDING. CALL LIGHT WITHIN REACH. NO ACUTE CHANGES THIS SHIFT.
--- NOTE | 2022-03-13 03:00 | NUR ---
SHIFT SUMMARY NO ACUTE CHANGES OVERNIGHT. PT HAS BEEN PACING AND APPEARS TO BE PARANOID. PT IS CALM IN ROOM. NONVERBAL. ALERT. AMBULATES INDEPENDENTLY. PACING INTERMITTENTLY IN ROOM AND OUT IN THE HALLWAY. REFUSE VITALS. CALL LIGHT WITHIN REACH. WILL CONTINUE TO MONITOR.
--- NOTE | 2022-03-13 16:22 | NUR ---
DAY SHIFT SUMMARY 67 YR OLD FEMALE PT WAITING GUARDIANSHIP AND PLACEMENT. PT IS SELECTIVLY NON-VERBAL, ON RA, NO IV. NO ACUTE CHANGES THIS SHIFT.
--- NOTE | 2022-03-13 22:12 | NUR ---
PT IS REFUSING PHYSICAL SHIFT ASSESSMENT AT THIS TIME.
--- NOTE | 2022-03-14 03:48 | NUR ---
PT A/O TO SELF. PT IS SELECTIVELY NON VERBAL. PT REFUSED PHYSICAL SHIFT ASSESSMENT MULITPLE TIMES. PT RESTED AFTERWARDS FOR MOST OF SHIFT. PT WAS INCONTINENT OF BOWELS AND WAS GIVEN A CLEAN ATTENDS WHICH SHE INDEPENDENTLY CHANGED WITH PROMPTING. PT IS WITHDRAWN AND RELUCTANT TO COOPERATE IN CARE. PT IS CURRENTLY RESTING WITH CALL LIGHT WITHIN REACH AND BED IN LOW POSITION.
--- NOTE | 2022-03-14 06:05 | NUR ---
STUDENT NURSE NOTES AND DOCUMENTS REVIEWED AND IN AGREEMENT WITH.
--- NOTE | 2022-03-14 18:22 | NUR ---
SHIFT SUMMARY PT HAS REMAINED NONVERBAL THIS SHIFT AND REFUSED ALL CARE. PT HAS BEEN UP IND IN ROOM AND APPEARD VERY FEARFULL OF STAFF WHEN APPROACHED TO PROVIDE CARE. PT HAS EATEN PART OF HER MEALS BUT WILL NOT EAT IF ANY STAFF ARE IN ROOM. PT APPEARS TO HAVE GOTTEN UP IND FOR BRP BUT MAY ALSO BE INC, PT WILL NOT ALLOW STAFF NEAR HER TO CHECK ATTENDS OR HELP WITH TOILETING OR CARE. NEW ATTENDS PLACED IN PTS ROOM WITHIN HER REACH AND PT ENCOURAGED TO CHANGE IND. REFUSAL OF CARE REPORTED TO SEASONAL DELIVERY DRIVER. NO OTHER CHANGES TO REPORT THIS SHIFT.
--- NOTE | 2022-03-14 22:15 | NUR ---
PT REFUSING PHYSICAL SHIFT ASSESSMENT AND ANY CARE OFFERED.
--- NOTE | 2022-03-15 03:17 | NUR ---
PT REFUSED PHYSICAL ASSESSMENT. PT IS ANXIOUS AND SEEMS AFRAID OF STAFF. PT HAD FOUL ODOR EMENATING FROM ROOM INTO THE HALLWAY. PT WAS CONVINCED BY NURSING STAFF TO CHANGE INTO CLEAN ROBE AND CHANGE SOILED ATTENDS. PT WAS CLEANED UP TOLERATED. PT WILL NOT LET STAFF PUT NEW ATTENDS ON AND IS REFUSING ALL CARE ONCE AGAIN. PT LINEN ON BED WAS CHANGED. PT IS SITTING IN CHAIR IN THE MIDDLE OF ROOM STARING AT THE WALL AND LOOKS VERY ANXIOUS BUT REFUSES ANY HELP.
--- NOTE | 2022-03-15 05:33 | NUR ---
RAILROAD SURVEYOR NOTES AND DOCUMENTS REVIEWED AND IN AGREEMENT
--- NOTE | 2022-03-15 13:20 | NUR ---
BG IS REFUSING CARE. SHE IS NOT RESPONDING TO NURSES' REQUESTS, SHE WILL LOOK NURSE IN THE EYE. SHE DOES NOT RESIST ASSESSMENT. PT DECLINES PERSONAL CARE. MEAL TRAYS OFFERED WITH MULTIPLE ATTEMPTS TO REDIRECT, ENCOURAGE ORAL INTAKE, STATE THE NEED FOR PROTEIN/VITAMINS FOR OVERALL HEALTH. PT IS NOT AGGRESSIVE, BUT DECLINES TO ENGAGE WITH STAFF. SHE REMAINS SEATED IN HER CHAIR, WITH RESTLESS LEGS, AND FIDGETS WITH/RE-ADJUSTS HER HOSPITAL GOWN.
--- NOTE | 2022-03-15 16:42 | NUR ---
SHIFT SUMMARY PT CONTINUES TO REFUSE CARE. SHE DID URINATE ON THE FLOOR, AND CONSENTED FOR STAFF TO CLEAN HER CORNELIO-AREA AND REDRESS HER WITH A CLEAN ROBE. MULTIPLE STAFF APPROACHED PT WITH ENCOURAGEMENT FOR PO INTAKE, BUT PT CONTINUED TO STATE, "I'M GOOD." RN ATTEMPTED TO ASK WHAT KINDS OF FOOD PT PREFERS, BUT PT ONLY STATED, "i'M GOOD." BG IS SELECTIVELY MUTE. NO AGGRESSION NOTED. PT WILL PACE, FIDGET AND SITS IN HER CHAIR.
--- NOTE | 2022-03-16 06:18 | NUR ---
BG ALLOWED PHYSICAL ASSESSMENT TONIGHT. SHE IS STILL REFUSING TO EAT, DRINK, OR TAKE MEDS. PT HAS BEEN VERBAL TONIGHT ENGAGING WITH STAFF. PT HAS BEEN WANDERING INTO OTHER PT'S ROOMS AND IS EASILY REDIRECTED BACK TO HER OWN ROOM. PT IS PACING BACK IN FORTH IN HER ROOM WITH CALL LIGHT NEARBY.
--- NOTE | 2022-03-16 06:27 | NUR ---
GRAIN INSPECTOR NOTES AND DOCUMENTS REVIEWED AND IN AGREEMENT
--- NOTE | 2022-03-16 16:35 | NUR ---
SHIFT SUMMARY PATIENT SHOWS NO SIGN OF PAIN, NAUSEA, AND SHORTNESS OF BREATH. SHAKES HEAD NO WHEN ASKED. PATIENT MOSTLY NONVERBAL THROUGHOUT SHIFT. PATIENT CAN TALK, DID VERBALIZE A HANDFUL OF WORDS TO THIS RN TODAY. PATIENT HAS VERY POOR PO INTAKE. PATIENT DID NOT EAT BREAKFAST, ATE ALL OF HER APPLE SLICES FOR LUNCH. PATIENT TAKING SIPS OF WATER OR SODA, BUT NOT MUCH INTAKE. PATIENT RESISTANT TO CARE, BUT COOPERATIVE. PATIENT ACTS VERY PARANOID. PATIENT IS IND IN ROOM. PATIENT IS PLEASANT. PATIENT HAS BEEN REFUSING MEDICATIONS.
--- NOTE | 2022-03-17 03:08 | NUR ---
SUMMARY: PT ORIENTED TO SELF ONLY AND REMAINS PREDOMINANTLY NONVERBAL W/THE EXCEPTION OF A FEW WORDS AT TIMES. SHE'S INDEPENDENT IN ROOM AND HALLS BUT OFTEN ATTEMPTS TO GO INTO OTHER ROOMS SO SBA PROVIDED IN COMMON AREA. SHE REQUIRES ASSIST W/ADL'S BUT IS RESISTANT TO HELP, FREQUENT REITTERATION NEEDED TO ENCOURAGE COOPERATION. POOR PO PERSISTS AND LIMITED OUTPUT OBSERVED. SHE IS VERY RESTLESS, FIGITING AND TINKERS OFTEN IN ROOM AND HAS NOT SLEPT THIS SHIFT. NO S/S DISTRESS AND VSS/AFEBRILE W/O ACUTE CHANGES. GUARDIANSHIP AND PLACEMENT IN PROGRESS. WCTM AND REPORT TO DAY RN.
--- NOTE | 2022-03-17 17:37 | NUR ---
SHIFT SUMMARY PT A&O X1 SOMETIMES T/O SHIFT. PT VERY WITHDRAWN, NON-VERBAL T/O MOST OF SHIFT. PT DID COME OUT OF ROOM TO [place] FOR ROUGHLY AN HOUR. ENJOYED VISITING W/ OTHER PT'S, WAS VERBAL AND ATE VANILLA PUDDING, CRACKERS & CHEESE, AND WAS VERY EXCITED ABOUT VANILLA ENSURE. PT ENJOYED COLORING BRIEFLY. REFUSED MED. VSS. CALL LIGHT W/IN REACH. INDEPENDENT IN ROOM AND IN V[place]. PT SERVED GAURDIANSHIP PAPERWORK THIS SHIFT.
--- NOTE | 2022-03-18 03:27 | NUR ---
SUMMARY: PT REMAINS ORIENTED TO SELF ONLY BUT IS VERY WITHDRAWN W/FLAT AFFECT AND ENGAGED IN MINIMAL VERBAL INTERACTION. SHE DID COME TO DOORWAY THIS SHIFT W/RANDOM BELONGINGS AND PAPERWORK IN HAND STATING "I WANT TO GO NOW". STAFF ATTEMPTED TO EXPLAIN SITUATION/EVENT BUT PT SEEMED TO LACK UNDERSTANDING. SHE ADMITTED SHE "DIDN'T KNOW WHERE HOME IS AND HAS NO ONE TO PICK HER UP" BUT SHE "DIDN'T WANT TO BE IN THAT ROOM ANYMORE". SHE'S BEEN UP AD VINAY IN ROOM/[place]AS[place] AND EVENTUALLY FELL ASLEEP IN HALLWAY CHAIR AFTER RESISTING RETURN TO ROOM AND BED WHEN OFFERED. VANILLA ENSURE, WATER AND A WARM BLANKET PROVIDED BUT PT CONT'S TO LACK PO INTAKE. NO ACUTE CHANGES, VSS/AFEBRILE. GUARDIANSHIP AND PLACEMENT IN PROGRESS. WCTM AND REPORT TO DAY RN.
--- NOTE | 2022-03-18 16:12 | NUR ---
pt was quite sitting in the hallway throughout the shift. pt tolerated most of a assessment. Pt is refusing all care throughout the shift. pt offered fluids and food, pt refused all fluids and food. pt refused all medications. pt has edema in her feet due to refusing to lay in her bed. Pt offered socks for feet and pt refused. pt refused breif checks to prevent skin breakdown. pt has moved serveral times from the chair but mostly in the chair in the hallway. pt was evaluated by palliative care team, ethics and case managment team. pt is a candiate for cofort care, waiting on orders from the care team. pt not showing signs of distress or discomfort. pt sitting and dozing off in chair in the hallway.
--- NOTE | 2022-03-18 16:35 | NUR ---
SHIFT SUMMARY PT STANDING IN [place] AT START OF SHIFT. PT EVENTUALLY SAT DOWN IN A CHAIR IN THE [place] AND HAS REMAINED THERE MOST OF THE DAY. PT GOT UP TO CERTIFIED DENTAL ASSISTANT HALLWAY A COUPLE OF TIMES, ONLY BRIEFLY, AND THEN SAT BACK DOWN. PT HAS REFUSED ALL CARE ALL DAY LONG. PT HAS NOT EATEN OR DRANK ANYTHING THIS SHIFT. PT WILL NOT ANSWER ANY QUESTIONS OR TALK. VERY FLAT AFFECT. PT'S FEET AND LE'S ARE VERY SWOLLEN AND MOTTLED FROM BEING DEPENDENT ALL DAY. PT REFUSING BLANKET, THOUGH APPEARING TO BE COLD. LAST BM UNKNOWN. DR TONY HERE TO SEE PT THIS AM; UPDATED ON PT STATUS. S/W HERE LATER IN THE DAY TO REPORT SOME GUARDIANSHIP. PALLIATIVE CARE NOTIFIED OF PT'S STATUS; NEW ORDERS PLACED THIS AFTERNOON. PT TO BE PLACED ON HOSPICE. PER SHIFT REPORT, PT FOUND DOWN WITH NO HEAT, WATER, OR FOOD IN HER HOUSE. PT WILL NOT AGREE TO SHOWER. LINEN CHANGED AGAIN TODAY, THOUGH PT DOES NOT SLEEP IN BED. WILL CONTINUE TO MONITOR.
--- NOTE | 2022-03-18 17:07 | NUR ---
Review of pt symptoms with nursing, care manger, social services assistant and physician. Review of Dr Sebastian notes. Pt is aging and MS may be escalting and showing more s/s of dementia. [place] is to enhance pt comfort and support her throught he rest of her life. Review of her needs hospice would be best plan considering her weight loss and struggles with food. If we can get her placed in memory care wither she can have some variety to her environment and no more back and forth to hospital it may enhance her comfort. Plan is to speak with guardian about hospice care and No preference on company so consulted [facility] to review with Dr. Herrera. Will continue to monitor for symptom manamgent and offer variety of foods.
--- NOTE | 2022-03-19 04:08 | NUR ---
Patient with VSS on RA overnight. Patient up in hallway on chair through most of the shift. INcontinent voiding. Patient offered water or juice, snakcks , multiple times durng shift. Patient refused every time. Patient stating that her and I do not speak the same language. That she cant understand me because I am speaking another language. after some questioning I was able to understand she was confused about the time. At 0400 i was able to get her out of the parker and into her bed. Bilat legs with dependent edema from prolonged sitting up in the chair. NO acute skin issues noted.
--- NOTE | 2022-03-19 11:05 | NUR ---
PT HAS BEEN REFUSING CARE RECENTLY, BUT SHE ALLOWED US TO BATHE AND COMB HER HAIR. SHE HOWEVER WOULD NOT LET ME TAKE HER PANTS OFF SO SHE HAS BEEN SITTING IN SOILED PANTS. WHEN I ATTEMPTED TO TAKE THEM OFF SHE SAID "NO PLEASE" ABD MOVED AWAY. WAS INFORMED AND ATIVAN WAS ORDERED ORALLY, BUT PT REFUSED TO OPEN HER MOUTH, ANOTHER ATTEMPT WAS MADE TO REMOVE HER PANTS BUT NO SUCCESS. THIS RN WAS CONCERNED THAT THE PT WOULD DEVELOP WOUNDS FROM SITTING IN HER SOILED PANTS. PT HAS BEEN ADVISED THIS OS FOR HER BENEFIT AND HEALTH. RN CONCERNS
--- NOTE | 2022-03-19 19:16 | NUR ---
SHIFT SUMMARY PT HAS BEEN COMPLIANT WITH CARE TODAY, BUT HAS REFUSED MEDICATIONS AND TO ALLOW STAFF TO CHANGE HER BRIEF. DR IS AWARE AND GIVE NO NEW ORDERS. PALLIATIVE CARE CONSULTED WITH CONCERN ABOUT SKIN BREAKDOWN AND STEP ARE BEING MADE TO HAVE HER TRANSFERRED TO HOSPICE TO ALLOW HER TO BE MEDICATED TOPICALLY TO ALLOW FOR BETTER CARE. PT IS ALSO SOMEWHAT VERBAL IF GIVEN TIME TO REPOND. STILL HOPEFUL TO DISCHARGE TO HOSPICE
--- NOTE | 2022-03-20 05:09 | NUR ---
Patient up independently in room and parker. Incontinent voidng in attends. Patient with improved verbal communication. Delayed but appropriate responses. Patient layed down to sleep around 0300. Unable to get patient to take her medication or sips of liquid.
--- NOTE | 2022-03-20 13:39 | NUR ---
pt still mostly non verbal more clenching noted legs are brown swollen. [facility] to review pt intake nurse visited pt and review of care needs with clinical social work aide updated physician on symptoms and medication needs and strategy.
--- NOTE | 2022-03-20 17:33 | NUR ---
SHIFT SUMMARY PT IS STILL NO EATING AND HAS NOT SPOKEN OR RESPONDED TO STAFF INTERACTIONS TODAY. PALLIATIVE CAME AND SAT WITH HER FOR A WHILE AND SHE WAS INTERVIEWED BY A APPLIED ANTHROPOLOGIST FROM [facility]. SHE WILL BE ACCEPTED THERE ON HOSPICE PER -ALLIATIVE CARE.
--- NOTE | 2022-03-21 04:39 | NUR ---
Patient calm and cooperative overnight. Laying in bed or dangling at eob all night. Patient able to sleep the majority of the shift. No PO intake noted. Patient up in bathroom, flushed toilet x1. Patient with minimal converstation but what she did say made sense.
--- NOTE | 2022-03-21 08:00 | NUR ---
pt sitting on the side of the bed with breakfast in front of her, refusing to eat, refusing to speak, just stares, is ambulating around the room, gait noted to be steady, unable to assess her neuro status, doesn't want to be directed or messed with, smells a bit like urine but refusing to shower at this time, will continue to try, 2+ edema noted to b/l le, on r/a, no s/s of distress noted, will continue to monitor and attempt to get her to eat and drink, and do hygien, call light in reach.
--- NOTE | 2022-03-21 12:40 | NUR ---
pt sitting on the side of the bed with legs shaking, not touching lunch, wont respond, brought her a warm blanket but put her hands up indicating she doesn't want it. would like to get her in the shower but refusing. call light in reach.
--- NOTE | 2022-03-21 18:22 | NUR ---
pt wonders around room sits on side of the bed, lays down at the end of the bed, continues to refuse food and medicines. was offered popcycle etc, wont touch it. no acute events this shift. call light in reach.
--- NOTE | 2022-03-22 04:34 | NUR ---
SHIFT SUMMARY PT MOSTLY NONVERBAL. MOSTLY JUST SITS AND STARES WHEN ASKED A QUESTION. PT IS FLAT. APPEARS PARANOID. WOULD NOT TAKE ANY FOOD OR DRINK FROM THIS RN TONIGHT. INCONTINENT OF URINE X 1. PT SLEPT A LOT THIS EVENING. WHEN SHE WASNT SLEEPING SHE WOULD BE SITTING AT THE SIDE OF THE BED. REMAINED IN HER ROOM THROUGHOUT THE NIGHT. PT AWAITING PLACEMENT. NO ACUTE CHANGES THIS SHIFT.
--- NOTE | 2022-03-22 17:11 | NUR ---
PATIENT MOSTLY NON VERBAL THIS SHIFT. SHE DID SAY A FEW WORDS EVERY NOW AND THEN. PATIENT WOULDN'T EAT IN FRONT OF STAFF, BUT IF TRAY WAS SET UP AND LEFT IN FRONT OF HER SHE WOULD EAT. SHE SNACKED WELL ON POWER JELLO, SODA. SHE HAD A BED BATH AND ALLOWED STAFF TO WASH HER HAIR. SHE HAD A BM TODAY. THE TIPS OF HER TOES TURN A PURPLE COLOR IF SHE HANGS HER FEEL OVER THE BED. SHE DOESN'T COMPLAIN OF PAIN OR ANYOTHER MEDICAL.
--- NOTE | 2022-03-23 04:46 | NUR ---
SHIFT SUMMARY PT SLEPT OFF AND ON. WOKE AT APPROX 0400 AND REMAINED AWAKE THE REST OF THE NIGHT. PACED IN HER ROOM OR SAT AT THE SIDE OF HER BED. MOSTLY NONVERBAL. MOSTLY ONLY SPEAKING WHEN REFUSING CARE. INCONTINENT THIS EVENING. RELUCTANT TO ALLOW BRIEF TO BE CHANGED BUT EVENTUALLY DID. NO ACUTE CHANGES THIS EVENING. AWAITING PLACEMENT.
--- NOTE | 2022-03-23 11:47 | NUR ---
PSYCHIATRIC ORDERLY NOTIFIED THIS DELI WORKER THAT A FACILITY WOULD BE IN THIS AFTERNOON TO ASSESS THIS PATIENT FOR [facility].
--- NOTE | 2022-03-23 17:10 | NUR ---
NO CHANGE IN MENTATION TODAY. STILL MOSTLY NON VERBAL. PATIENT DID HAVE A BM THAT APPEARED TARRY. PROVIDER WAS NOTIFIED. NO NEW ORDERS.
--- NOTE | 2022-03-24 06:33 | NUR ---
SLIVER CUTTER SUMMARY PT AWAITING MEMORY CARE PLACEMENT. SHE IS A FULL CODE. INTERACTION IS MINIMAL WITH THE PATIENT DUE TO HER WITHDRAWN AND FEARFUL AFFECT. SHE REFUSES MOST OF THE CARE. PT HAS BEEN SLEEPING AND KEEPING TO HERSELF THIS SHIFT. SHE APPEARS TO BE INCONTINENT BUT REFUSES BRIEF CHANGES.
--- NOTE | 2022-03-24 10:54 | NUR ---
Called [facility] to review plan of care. Intake nurse is working with guardian requested discussion of code status. Will contact to complete polst.
--- NOTE | 2022-03-24 18:08 | NUR ---
PATIENT VERY WITHDRAWN AND FEARFUL OF STAFF. NOT RESPONDING VERBALLY AND RESISTS CARE. VERY POOR APPETITE AND ONLY ATE BITES TODAY AND DRANK HER ENSURES. COVID SWAB DONE FOR LIKELY DC TOMORROW TO [facility]. VSS, ON RA. SKIN INTACT.
[2022-03-24 18:11] LABS: Influenza A, PCR NEGATIVE (NEGATIVE); Influenza B, PCR NEGATIVE (NEGATIVE); Resp Syncytial Virus, PCR NEGATIVE (NEGATIVE); SARS-Cov-2 (COVID-19) PCR, MMC NEGATIVE (NEGATIVE)
--- NOTE | 2022-03-24 22:54 | NUR ---
PT VERY WITHDRAWN FROM ME. UNABLE TO PERFORM FULL ASSESSMENT. PT REFUSING MOST CARE. SEEMS MISTRUSTING OF MEDICAL STAFF.
--- NOTE | 2022-03-25 04:32 | NUR ---
SALES AGENT MARINE INSURANCE SUMMARY PT TO BE DISCHARGED TODAY TO [facility]. PT IS STILL WITHDRAWN AND REFUSING ASSESSMENT OR INTERACTION WITH ME. SHE HAS DECREASED ORAL INTAKE TODAY AND HAS NOT BEEN DRINKING. PT HAS DIFFICULTY MAKING HER NEEDS KNOWN. SHE AVOIDS EYE CONTACT AND WITHDRAWS WHEN APPROACHED.
--- NOTE | 2022-03-25 17:28 | NUR ---
NO ACUTE CHANGES THIS SHIFT. PATIENT ATE BETTER TODAY AND IS INDEPENDENT WITH THAT. DOES NOT MAKE NEEDS KNOWN. CONTINENT OF BOWEL/BLADDER. ALERT, BUT WILL NOT RESPOND VERBALLY. INDEPENDENT IN ROOM. AWAITING PLACEMENT AT [facility].
--- NOTE | 2022-03-26 03:28 | NUR ---
SHIFT SUMMARY NO ACUTE CHANGES OVERNIGHT. PT STILL APPEARS TO HAVE FLAT AFFECT. NONVERBAL BUT ALERT. INDEPENDENT IN ROOM. PT IS NON VERBAL. PT DOES NOT ANSWERS MY QUESTIONS AT ALL TONIGHT. SHE HAS A BLANK STARE WHEN BEING TALKED TO. ALTHOUGH SHE IS CALM IN HER ROOM, SHE IS NOT COOPERATIVE WITH CARE. CALL LIGHT WITHIN REACH. WILL CONTINUE TO MONITOR AND WILL PROVIDE REPORT TO ONCOMING NURSE.
--- NOTE | 2022-03-26 06:08 | NUR ---
ATTEMPT TO CHANGE PT'S ATTENDS AND OFFERED TO CLEAN HER UP BUT PT REFUSED. PT APPEARS ANXIOUS, PUSHING MY HAND AWAY.
[2022-03-26] MEDS ORDERED: MIRT15 PO (11:39)
--- NOTE | 2022-03-26 12:30 | NUR ---
PATIENT D/C'D TO [facility] VIA W/C TRANSPORT. REPORT CALLED TO ERLIN. PATIENT VERY ANXIOUS AND UNWILLING TO GET IN W/C, ATIVAN GIVEN PRIOR TO TRANSPORT TO HELP EASE ANXIETY. BELONGINGS AND PAPERWORK SENT WITH INVESTIGATIVE AGENT.
== END 2022-03-26 12:44 | disposition hospice, home (50) ==
LOC: ER 10:42 → MEDS 16:26
PROVIDERS: Hospitalist; Internal Medicine; Student in an Organized Health Care Education/Training Program; ADMIT Internal Medicine
DX: N17.9 Acute kidney failure, unspecified (principal); E87.0 Hyperosmolality and hypernatremia; E87.6 Hypokalemia; E83.39 Other disorders of phosphorus metabolism; D72.829 Elevated white blood cell count, unspecified; T73.0XXA Starvation, initial encounter; X58.XXXA Exposure to other specified factors, initial encounter; E44.0 Moderate protein-calorie malnutrition; F33.9 Major depressive disorder, recurrent, unspecified; F41.9 Anxiety disorder, unspecified; Z20.822 Contact with and (suspected) exposure to COVID-19
CPT/HCPCS: 0241U; 36415; 70450; 71045; 80048; 80053; 80069; 82306; 83735; 84132; 84295; 84484; 85025; 93005; 93010; 96360; 96361; 96372; 96374; 96376; 97162; 97530; 99285-25; A9270; G0378; J2060; J3480; J7030; J7040; J7060; J7070; J7120

== ENCOUNTER → 2022-05-19 | Outpatient (CLI) | payer MEDICARE, OTHER ==
[~2022-05-19] MED LIST: ESCI10 PO; HYDHCL25 PO; MIRT15 PO; TRAZ50 PO
[2022-05-19 18:49] LABS: Source, Urine Clean Catch
[2022-05-19 19:01] LABS: Appearance, Urine Cloudy (Clear); Bilirubin, Urine Neg (Neg); Blood, Urine 2+ (Neg); Color, Urine Yellow (P-Yellow); Glucose Qualitative, Urine Neg (Neg); Ketones, Urine Neg (Neg); Leukocyte Esterase, Urine 3+ (Neg); Nitrite, Urine Pos (Neg); Protein, Urine 2+ (Neg); Urobilinogen, Urine NORM (Normal)
[2022-05-19 19:17] LABS: Triple Phosphate Crystals Few /hpf
[2022-05-19 19:18] LABS: Bacteria Many /hpf; Squamous Epithelial Cells Few /hpf (Few)
== END | disposition home or self-care (01) ==
LOC: EDSTATUS 08:58 → LAB 18:46 → LAB SHORT 18:46
PROVIDERS: Nurse Practitioner Family
DX: E11.22 Type 2 diabetes mellitus with diabetic chronic kidney disease (principal); N18.32 Chronic kidney disease, stage 3b; D63.1 Anemia in chronic kidney disease; E78.2 Mixed hyperlipidemia
CPT/HCPCS: 81001; 87077; 87086; 87186

== ENCOUNTER → 2024-02-16 | Outpatient (CLI) | payer MEDICARE, OTHER ==
[2024-02-16 16:28] LABS: BASOPHILS ABSOLUTE AUTO 0.01 K/mm3 (0.00-0.23); BASOPHILS PERCENT AUTO 0 % (0-2); EOSINOPHILS ABSOLUTE AUTO 0.14 K/mm3 (0.00-0.68); EOSINOPHILS PERCENT AUTO 4 % (0-6); Hematocrit 38.6 % (33.0-51.0); Hemoglobin 13.1 g/dL (11.5-16.0); IMMATURE GRAN ABSOLUTE AUTO 0.02 K/mm3 (0.00-0.10); IMMATURE GRAN PERCENT AUTO 1 % (0-1); LYMPHOCYTES ABSOLUTE AUTO 1.26 K/mm3 (0.84-5.20); LYMPHOCYTES PERCENT AUTO 37 % (21-46); MONOCYTES ABSOLUTE AUTO 0.12 K/mm3 (0.16-1.47); MONOCYTES PERCENT AUTO 4 % (4-13); Mean Corpuscular HGB 30.5 pg (26.0-34.0); Mean Corpuscular HGB Conc 33.9 g/dL (31.5-36.5); Mean Corpuscular Volume 90 fL (80-100); Mean Platelet Volume 9.5 fL (9.1-12.4); NEUTROPHILS ABSOLUTE AUTO 1.87 K/mm3 (1.96-9.15); NEUTROPHILS PERCENT AUTO 55 % (41-73); Platelet Count 206 K/mm3 (150-400); RDW Coefficient Variation 15.2 % (11.7-14.2); RDW Standard Deviation 49.9 fL (35.1-46.3); Red Blood Cell Count 4.29 M/mm3 (3.80-5.20); White Blood Cell Count 3.42 K/mm3 (4.00-11.30)
[2024-02-16 16:31] LABS: Very Low Density Lipoprot Chol 27 mg/dL (6-32)
[2024-02-16 16:36] LABS: Alanine Aminotransfer (ALT/SGP 32 U/L (12-78); Albumin, Blood 3.5 g/dL (3.4-5.0); Alk Phos 102 U/L (50-136); Anion Gap 9 mmol/L (3-11); Aspartate Aminotrans (AST/SGOT 23 U/L (12-37); Bilirubin, Direct <0.1 mg/dL (0.0-0.3); Bilirubin, Indirect Unable to Calculate mg/dL (0.1-0.7); Bilirubin, Total 0.3 mg/dL (0.1-1.0); Blood Urea Nitrogen 16 mg/dL (8-24); Bun/Creatinine Ratio 18.1 (12.0-20.0); CO2, Blood 27 mmol/L (21-32); Calcium, Blood 8.6 mg/dL (8.5-10.1); Chloride, Blood 109 mmol/L (98-108); Cholesterol 244 mg/dL (50-200); Creatinine, Blood 0.89 mg/dL (0.40-1.00); Globulin, Blood 3.4 g/dL (2.2-4.0); Glomerular Filtration Rate 71 (60-); Glucose, Blood 99 mg/dL (70-99); Potassium, Blood 4.5 mmol/L (3.5-5.5); Sodium, Blood 140 mmol/L (136-145); Total Protein, Blood 6.9 g/dL (6.4-8.2); Triglycerides 135 mg/dL (30-160)
[2024-02-16 16:41] LABS: CHOL/HDL RATIO 3.4; HDL Cholesterol 72 mg/dL (>39); Low Density Lipoprotein Chol 145 mg/dL (0-110)
== END ==
LOC: LAB 15:24 → LAB SHORT 15:24
PROVIDERS: Nurse Practitioner Family
DX: F41.1 Generalized anxiety disorder (principal); Z79.899 Other long term (current) drug therapy
CPT/HCPCS: 80053; 80061; 82248; 82306; 84443; 85025